=== PATIENT | female | born 1960 | race Caucasian/White ===

== ENCOUNTER 2022-04-17 16:55 | Emergency (ER) | payer OTHER, SELFPAY ==
[2022-04-17 19:15] VITALS: BP 132/75; PULSE 59; RESP 18; TEMP 36.8; O2SAT 98; BMI 25.1
--- NOTE | 2022-04-17 19:33 | ED.WOUNDLAC ---
HPI - Wound/Laceration General Chief Complaint: Wound/Laceration Stated Complaint: Finger lac at work Time Seen by Provider: 04/17/22 19:33 Source: patient Mode of arrival: ambulatory Limitations: no limitations History of Present Illness HPI narrative: 61-year-old female presenting to the emergency department with complaints of laceration to left middle finger, work related injury. 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 She tells me it was very painful, reporting burning at the site. Has no complaints of difficulty with range of motion of that finger. Denies numbness or tingling. Patient not up-to-date on tetanus shot. Related Data Previous Rx's Medication Instructions Recorded doxycycline hyclate 100 mg capsule 100 mg PO BID 10 days #20 caps 04/17/22 Allergies Allergy/AdvReac Type Severity Reaction Status Date / Time No Known Allergies Allergy Unverified 04/10/20 16:44 Review of Systems Review of Systems: Constitutional : No Fever, No Chills, Cardiovascular : No Chest Pain, No SOB Respiratory : No Dyspnea Gastrointestinal : No abdominal pain Musculoskeletal : No Joint Swelling Skin : No rash, positive skin laceration Neuro : No Weakness, No Numbness Psych : No SI/HI Yes all other systems are reviewed and are negative [facility] Past Medical History Attestation statement: The following information was validated with the patient. Source: old records reviewed and nursing notes reviewed Social History Social History Advance Directives: No Advance Directives Information Provided: No Physical Exam Vital Signs: Vital Signs: Last Vital Signs Temp 98.2 F 04/17/22 19:15 Pulse 59 04/17/22 19:15 Resp 18 04/17/22 19:15 BP 132/75 04/17/22 19:15 Pulse Ox 98 04/17/22 19:15 O2 Del Method 04/17/22 19:15 BMI result Body Mass Index 25.1 vss Appearance: Alert.? Oriented X3.? No acute distress.? Head: Normocephalic, atraumatic, no step-offs or deformities Eyes: Pupils equal, round and reactive to light.? CVS: Normal heart rate and rhythm.? Pulses normal.? Respiratory: No respiratory distress.? Breath sounds normal.? Abdomen: Soft and nontender.? Skin: Skin warm and dry.? Normal skin color.? Normal skin turgor.?+ 2 cm laceration to left middle finger no signs of foreign body. Extremities:5/5 strength to bilateral upper and lower extremities bilateral fingers the with full range of motion, normal capillary refill, normal sensation. 2+ radial pulses equal bilateral. Neuro: Oriented X 3.? No motor deficit.? No sensory deficit. CN 2-12 intact Course Reevaluation(s) Reevaluation #1: Successfully applied Dermabond with no complications, patient will be placed in a splint advised her to take splint off tomorrow. Will discharge home on antibiotics. Advised follow-up with the were connection. And to return with new or worsening symptoms. Outlined worrisome signs and symptoms on discharge and when to return. Time: 19:37 MDM - Wound/Laceration MDM Narrative Medical decision making narrative: 1917 61-year-old female presenting with laceration status post cutting herself with a kickboxing instructor, not up to date on a tetanus shot. Physical examination with a laceration to left middle finger. No evidence of foreign body. Unlikely fracture, dislocation. Likely superficial laceration without foreign body, uncomplicated. Neurovascularly intact. Plan at this time is to apply Dermabond to the site administer tetanus shot. Medical Records Attestation: I reviewed the patient's medical records. Lab Data Attestation: I reviewed the patient's lab results. Critical Care Time Critical Care Time Critical Care Time: No Discharge Plan Discharge Clinical Impression: Laceration Patient Disposition: Home, Self-Care Instructions: Laceration (ED), Laceration Without Closure (ED) Additional Instructions: Take your medications as prescribed. If you were prescribed antibiotics today, it is important that you take your medication to their entirety, do not skip any doses, do not finish them early. Follow-up with your primary care provider this week. Return to the emergency department with new or worsening symptoms. Such as fevers, chills, chest pain, shortness of breath, nausea, vomiting, dizziness, headache, vision changes, lethargy, numbness, tingling, discoloration of the finger, painful range of motion of finger In case of emergency call 911 Please follow-up with the were connection as this was a work related injury Prescriptions: New doxycycline hyclate 100 mg capsule 100 mg PO BID 10 Days Qty: 20 0RF Stand Alone Forms: Work/School Release
[2022-04-17] MEDS: Diphth,Pertus(ACell),Tet Adult 0.5 ML SYRINGE IM (19:55)
== END 2022-04-17 19:59 | disposition home or self-care (01) ==
PROVIDERS: Emergency Provider Student in an Organized Health Care Education/Training Program
DX: S61.213A Laceration without foreign body of left middle finger without damage to nail, initial encounter (principal); W27.8XXA Contact with other nonpowered hand tool, initial encounter; Y93.89 Activity, other specified; Y92.512 Supermarket, store or market as the place of occurrence of the external cause; Y99.0 Civilian activity done for income or pay
CPT/HCPCS: 12001; 29130; 90471; 90715; 99282; 99284

== ENCOUNTER 2022-04-18 11:30 | Emergency (ER) | payer OTHER, SELFPAY ==
[2022-04-18] MEDS: Diphth,Pertus(ACell),Tet Adult 0.5 ML SYRINGE IM (12:02)
--- NOTE | 2022-04-18 12:02 | ED.GENADULT ---
HPI - General Adult General Chief complaint: General Medical Stated complaint: Tetanus shot Time Seen by Provider: 04/18/22 11:46 Source: patient Mode of arrival: ambulatory Limitations: no limitations History of Present Illness HPI narrative: 61-year-old female presents to the ED for tetanus shot. Patient was seen yesterday for right finger laceration that did not need repair but tetanus ordered was not placed. patient needs to update her tetanu. Patient also states on discharge paper that was antibiotic prescription but her pharmacy did not receive it. Patient denies any other complaints. Related Data Previous Rx's Medication Instructions Recorded doxycycline hyclate 100 mg capsule 100 mg PO BID 10 days #20 caps 04/17/22 doxycycline hyclate 100 mg tablet 100 mg PO BID 7 days #14 tabs 04/18/22 Allergies Allergy/AdvReac Type Severity Reaction Status Date / Time No Known Allergies Allergy Unverified 04/10/20 16:44 Review of Systems Review of Systems: needs tetanus shot Yes all other systems are reviewed and are negative [facility] Social History Social History Advance Directives: No Advance Directives Information Provided: No Physical Exam ED Vital Signs: Vital Signs - 24 hr 04/18/22 12:41 Temperature 97.0 F Pulse Rate 92 Respiratory Rate 18 Blood Pressure 158/82 H Pulse Oximetry 99 Oxygen Delivery Method Room Air BMI result Body Mass Index 25.0 Const General: cooperative, healthy appearing, comfortable, no acute distress, well developed, alert, awake and Physically active; No acute distress or in distress Orientation/consciousness: oriented to person and oriented to place [facility] Head: Yes normal to inspection, Yes No palpable skull fracture present, Yes normocephalic, Yes atraumatic and No abrasion Eyes General: appearance normal, both eyes and all related structures Neck Neck: Yes normal visual inspection, Yes full ROM, Yes no lymphadenopathy, Yes no meningeal signs, Yes trachea midline, Yes supple, No anterior neck swelling and No tender Chest Chest palpation & inspection: normal inspection of the chest and normal palpation of entire chest wall Resp Effort & Inspection: normal respiratory effort and able to speak in complete sentences Auscultation: clear to auscultation bilaterally Cardio Jugular venous distension: no JVD Heart sounds: S1 normal heart sound present and S2 normal heart sound present GI Inspection: Yes normal to inspection and No abdominal wall ecchymosis Palpation (GI): Soft to palpation, not firm, nontender, no guarding and not rigid General: No CVA tenderness and Yes no CVA tenderness Back/Spine/Pelvis Back: no CVA tenderness, No CVA tenderness and No back tenderness Skin General skin exam: no rashes or lesions noted and elasticity normal Trauma: abrasion Neuro General: oriented to person, oriented to place and no meningeal signs Extrem Other: Left middlelacerated finger negative for signs of infection Psych Appearance: grossly normal, well kempt and not disheveled Course Course Course Narrative: Tdap ordered Reevaluation(s) Reevaluation #1: patient received tdap and doxycycline sent to phary[facility] Time: 12:08 Medical Decision Making [facility] Narrative Medical decision making narrative: tdap Discharge Plan Discharge Clinical Impression: Need for Tdap vaccination Patient Disposition: Home, Self-Care Instructions: Diphtheria/Acellular Pertussis/Tetanus Booster Vaccine (Tdap) (By..., The Importance of Immunizations (Vaccines) for Adults (ED) Additional Instructions: Return to the ED for any redness, swelling, pus discharge, fever, chills, or any other signs of infection of finger. Please follow-up primary care provider Prescriptions: New doxycycline hyclate 100 mg tablet 100 mg PO BID 7 Days Qty: 14 0RF No Action doxycycline hyclate 100 mg capsule 100 mg PO BID 10 Days Qty: 20 0RF Interventions: ED Discharge Assessment Last Done: 04/18/22 12:45 Discharge Date/Time: 04/18/22 12:45 Print Language: Maltese
[2022-04-18 12:41] VITALS: BP 158/82; PULSE 92; RESP 18; TEMP 36.1; O2SAT 99; BMI 25.0
== END 2022-04-18 12:45 | disposition home or self-care (01) ==
PROVIDERS: Emergency Provider Internal Medicine
DX: S61.213A Laceration without foreign body of left middle finger without damage to nail, initial encounter (principal); S60.413A Abrasion of left middle finger, initial encounter; X58.XXXA Exposure to other specified factors, initial encounter; Y93.9 Activity, unspecified; Y92.9 Unspecified place or not applicable; Y99.9 Unspecified external cause status
CPT/HCPCS: 90471; 90715; 99282; 99284